=== PATIENT | female | born 1980 | race Caucasian/White ===

== ENCOUNTER → 2019-09-13 | Outpatient (CLI) | payer BC ==
--- NOTE | 2019-09-13 13:35 | CT ---
EXAM DESCRIPTION: Abdomen/Pelvis w/wo Contrast: Computed Tomography. CLINICAL HISTORY: PYREXIA OF UNKNOWN ORIGIN COMPARISON: CT scan of the chest with and without contrast on this visit. TECHNIQUE: Spiral-axial scans at 5.0 mm intervals through the abdomen and pelvis before and after 75 mL Optiray 320 nonionic IV contrast. No oral contrast. Coronal and sagittal 2.0 mm reconstructions. 5 mm Delayed helical-axial scans, liver through the pubic symphysis. No adverse reactions. Total Exam DLP 1535 mGy - cm. This exam was performed according to our departmental CT dose-optimization program which includes automated exposure control, adjustment of the mA and/or kV according to patient size and/or use of iterative reconstruction technique; to reduce radiation dose to as low as reasonably achievable (ALARA). FINDINGS: Lung bases and pleura: Please see report and images from chest CT scan on this visit. Liver, Stomach, Spleen, Adrenal Glands: Negative. Pancreas, Gallbladder, Ducts: Gallbladder visualized. Unremarkable. Kidneys and Ureters: Negative. Mesentery: No free air or free fluid. No fatty stranding or fascial thickening. Aorta: Minimal atherosclerotic calcification in the bilateral distal common iliac arteries and bifurcations. Small Bowel: Negative, except for abrupt distention of the distal 5 to 10 cm by fluid and minimal fecalization. Small air-fluid levels. Please see below.. Terminal Ileum/Cecum: Minimal fluid and distention of the terminal ileum and minimal fecalization. Distention of the cecum by feces. Retrocecal appendix is normal caliber containing gas. Surrounding fatty tissues are negative. Colon: Mild distention of the ascending colon by fecal matter. Remainder of the colon with normal caliber. No complications. Pelvic Organs: Vaginal cuff is negative. 1 to 1.5 cm follicles in the right ovary/adnexa. 1.3 cm follicle left ovary/adnexa. No free fluid. Spine and Bony Pelvis: Bulging L5-S1 disc. Mild levoscoliosis lumbar spine. Abdominal Wall/Back Soft Tissues: Negative. IMPRESSION: 1. Constipation and distention of the cecum and proximal ascending colon but no colonic mass distal to this segment. Fecalization and air-fluid levels in the terminal ileum and distal 5 to 10 cm of the ileum with abrupt transition from normal caliber and contents of the distal ileum. Appendix unremarkable. No surrounding free fluid or other inflammatory changes. No peritoneal or retroperitoneal inflammatory changes elsewhere in the abdomen or pelvis. 2. Bilateral ovarian/adnexal follicles but no free fluid. Electronically signed by: Lucio Antonio MD 09/13/2019 1:34 PM CDT
--- NOTE | 2019-09-13 13:59 | CT ---
EXAM DESCRIPTION: Chest w/wo Contrast : Computed Tomography. CLINICAL HISTORY: 38 years Female PYREXIA OF UNKNOWN ORIGIN COMPARISON: CT scan abdomen and pelvis on this visit. TECHNIQUE: Spiral-axial scans at 5 x 5 mm intervals through the lungs and thorax without and with 75 mL Optiray 320 IV contrast. 2.5 x 5 mm lung algorithm axial reconstructions. Coronal and sagittal 2.0 Mm reconstructions. No adverse reactions. Total Exam DLP: 414 mGy-cm. This exam was performed according to our departmental dose-optimization program which includes automated exposure control, adjustment of the mA and/or kV according to patient size and/or use of iterative reconstruction technique; to reduce radiation dose to as low as reasonably achievable (ALARA). Nodule measurements under 10 mm are given as mean value of 3 axes diameters. FINDINGS: Lungs and large airways: No abnormal nodules and no mass. No focal infiltrate. Pleural spaces: Minimal thickening in the bilateral bases. Mediastinum and [place]: Small lymph nodes. No dominant soft tissue masses. Great vessels and Heart: Unremarkable. Soft tissues of neck base, axillae, and chest wall: Axillary lymph nodes. Bilateral breasts are heterogeneously dense. Upper abdomen: Please see images and report from CT scan abdomen and pelvis on this visit. Osseous structures: Dextroscoliosis upper thoracic spine. IMPRESSION: Normal CT scan of the thorax and lungs without and with IV contrast. No findings concordant with clinical presentation. Electronically signed by: Lucio Antonio MD 09/13/2019 1:57 PM CDT
== END ==
LOC: CT 10:22
PROVIDERS: ATTEND Nurse Practitioner Family
DX: R50.9 Fever, unspecified (principal); K59.00 Constipation, unspecified

== ENCOUNTER → 2019-10-11 | Outpatient (CLI) | payer BC ==
--- NOTE | 2019-10-11 16:46 | MRI ---
EXAM DESCRIPTION: Brain w/wo Contrast: Magnetic Resonance Imaging. CLINICAL HISTORY: 38 years Female FEVER UNSPEC COMPARISON: None. TECHNIQUE: Multiplanar, high-field MRI, multiple conventional sequences, without and with gadolinium IV contrast. No adverse reactions. Multiple axial diffusion sequences. FINDINGS: Normal FLAIR and T2-weighted signal in the periventricular white matter and sierra-white matter junctions of the cerebral hemispheres. . Normal contrast enhancement. Normal signal in the bilateral basal ganglia. Normal contrast enhancement. Normal signal in the brainstem and cerebellar hemispheres. Normal contrast enhancement. Concordance of the diffusion and non-diffusion sequences with no evidence of acute or subacute infarction. Cortical sulci, ventricles, and other CSF spaces, and the subdural spaces are normally configured for patients age. No effacement or displacement. No midline shift. No extra-axial hemorrhage. Normal contrast enhancement. Normal flow signal void in the major vessels of the naknek Velazquez, and the venous sinuses. IACs are symmetric bilaterally. Normal signal in the bilateral mastoid air cells. No mass effect in the bilateral Cerebellopontine angles. Normal contrast enhancement. Pituitary gland occupies the entire sella. Normal contrast enhancement. Base of the cerebellar tonsils is at the level of the foramen magnum. No significant acute or chronic disease in the paranasal sinuses. The bony calvarium is intact. IMPRESSION: 1. Normal MRI scan of the brain without and with gadolinium IV contrast with no evidence of intra-axial or extra-axial inflammatory or infectious process. 2. Normal noncontrast MRI diffusion scan with normal diffusion restriction; no evidence of significant ischemia or acute or subacute infarction. Electronically signed by: Lucio Antonio MD 10/11/2019 4:44 PM CDT
== END ==
LOC: MRI 11:10
PROVIDERS: ATTEND Nurse Practitioner Family
DX: Z01.812 Encounter for preprocedural laboratory examination (principal); R50.9 Fever, unspecified